=== PATIENT | male | born 1995 | race Two or more races ===

== ENCOUNTER 2023-04-25 20:12 | Emergency (ER) | payer OTHER ==
[2023-04-25 20:26] VITALS: BP 149/92; PULSE 90; RESP 20; TEMP 98.2; BMI 28.8
[2023-04-25] MEDS ORDERED: SODIUM CHLORIDE 0.9% 500 ML INFUS.BAG IV ONE (21:09)
[2023-04-25 22:05] LABS: BASO % 0.4 % (0-2.0); EOS % 1.5 % (0-4.5); HEMATOCRIT 46.7 % (35.4-49); HEMOGLOBIN 15.5 GM/dL (11.7-16.9); LYMPH % 36.4 % (8-40); MCH 29.7 pg (25.7-33.7); MCHC 33.1 g/dl (32.0-35.9); MEAN CELL VOLUME 89.6 fl (80-96); MEAN PLT VOLUME 7.2 fl (7.5-11.1); MONO % 8.4 % (3.8-10.2); NEUT % 53.3 % (42.8-82.8); PLATELET COUNT 420 10^3/uL (134-434); RBC 5.21 M/mm3 (4.00-5.60); RDW 14.3 % (11.9-15.9); URINE APPEARANCE CLEAR; URINE BILIRUBIN NEGATIVE (NEGATIVE); URINE COLOR YELLOW; URINE GLUCOSE (UA) NEGATIVE (NEGATIVE); URINE KETONE NEGATIVE (NEGATIVE); URINE LEUK ESTERASE NEGATIVE (NEGATIVE); URINE NITRITE NEGATIVE (NEGATIVE); URINE PROTEIN NEGATIVE (NEGATIVE); URINE UROBILINOGEN 0.2 mg/dL (0.2-1.0); WHITE BLOOD COUNT 6.8 K/mm3 (4.0-10.0)
[2023-04-25 22:25] LABS: POTASSIUM 4.3 mmol/L (3.5-5.1)
[2023-04-25 22:27] LABS: ALBUMIN 4.2 g/dl (3.4-5.0); CALCIUM 9.3 mg/dL (8.5-10.1)
[2023-04-25 22:32] LABS: BILIRUBIN,TOTAL 0.2 mg/dL (0.2-1)
== END 2023-04-25 23:41 | disposition home or self-care (01) ==
LOC: JER 20:12
DX: F41.9 Anxiety disorder, unspecified (principal); F15.10 Other stimulant abuse, uncomplicated; F14.10 Cocaine abuse, uncomplicated; Z20.822 Contact with and (suspected) exposure to COVID-19
CPT/HCPCS: 0241U-QW; 36415; 80053; 81003; 85025; 93005; 93010; 99284-25